=== PATIENT | male | born 2000 | race Two or more races ===

== ENCOUNTER 2020-03-13 13:24 | Emergency (ER) | payer OTHER ==
[~2020-03-13] VITALS: Ht 167.6 cm; Wt 79.5 kg
[2020-03-13 13:44] VITALS: BP 113/62
== END 2020-03-13 16:10 | disposition home or self-care (01) ==
LOC: ER 13:25
DX: B34.9 Viral infection, unspecified (principal); R51 Headache; R11.0 Nausea; R50.9 Fever, unspecified; M79.10 Myalgia, unspecified site; Z20.828 Contact with and (suspected) exposure to other viral communicable diseases
CPT/HCPCS: 36415; 87635; 99283